=== PATIENT | female | born 1945 | race Caucasian/White ===

== ENCOUNTER 2020-11-30 17:00 | Emergency (ER) | payer OTHER, MEDICAID, SELFPAY ==
--- NOTE | ~2020-11-30 | CT_ITS ---
EXAMINATION: CT brain wo con EXAM DATE: 11/30/2020 21:28 INDICATION: Confusion, unsteady gait. TECHNIQUE: Spiral CT of the head was performed without contrast. Axial, coronal and sagittal images were reviewed. The dose-length product (DLP) for this examination was 1059.33 mGy-cm. The exposure was tailored according to patient size, and iterative reconstruction (ASIR) was used as additional do se reduction technique. There is no prior study for comparison. FINDINGS: There is a 1.5 x 2.5 cm extra-axial lesion with heterogeneous density overlying the left fr ontal lobe, appearance most consistent with meningioma. There is no acute intraparenchymal hemorrhage . No evidence of intraparenchymal brain mass lesion. No evidence of acute infarction. Please note that initial head CT has limited sensitivity for small or acute infarctions. There is periventricular and subcortical hypodensity, nonspecific but probably related to small vessel ischemic disease. Th ere is moderate prominence of the sulci and ventricles related to cerebral atrophy. There is intrac ranial carotid arteriosclerosis. There are no extra-axial collections. There is no mass effect or m idline shift. The orbits are unremarkable. Soft tissue is unremarkable. The visualized sinuses and mastoid air cells are well aerated. IMPRESSION: 1. No acute intracranial findings. 2. Extra-axial lesion overlying left frontal lobe most likely meningioma; recommend nonemergent brai n MR without and with contrast if there is no contraindication. Reviewed, dictated and finalized at location A. IMPRESSION: 1. No acute intracranial findings. 2. Extra-axial lesion overlying left frontal lobe most likely meningioma; jazmine mmend nonemergent brain MR without and with contrast if there is no contraindic ation.
[2020-11-30 17:29] VITALS: BP 129/70; PULSE 85; RESP 16; TEMP 36.9; O2SAT 99
[2020-11-30 17:49] LABS: Basophils Absolute Auto 0.1 K/mm3 (0.0-0.1); Basophils Percent Auto 0.7 % (0.2-1.2); Eosinophils Absolute Auto 0.2 K/mm3 (0-0.3); Eosinophils Percent Auto 2.5 % (0-4.4); Hematocrit 37.2 % (37.0-47.0); Hemoglobin 11.8 g/dL (12.0-15.0); Immature Granulocyte Absolute 0.15 K/mm3 (0.00-0.031); Immature Granulocyte Percent A 1.8 % (0-0.5); Lymphocytes Percent Auto 27.2 % (18.3-44.2); Mean Corpuscular HGB Conc 31.7 g/dl (32-36); Mean Corpuscular Hemoglobin 30.6 pg (26-34); Mean Corpuscular Volume 96.4 fl (80-100); Mean Platelet Volume 9.7 fl (7.4-10.4); Monocytes Absolute Auto 0.8 K/mm3 (0.1-0.6); Monocytes Percent Auto 9.2 % (2.6-8.5); Neutrophils Percent Auto 58.6 % (45.5-73.1); Platelet Count Result 218 k/mm3 (150-375); Red Blood Count 3.86 M/mm3 (4.2-5.4); Red Cell Distribution Width 14.5 % (11.5-14.5); White Blood Count 8.5 K/mm3 (4.5-10.0)
[2020-11-30 17:59] LABS: Alanine Aminotransferase 16 U/L (4-35); Albumin Level 3.9 g/dL (3.5-5.1); Alkaline Phosphatase 66 U/L (38-126); Anion Gap 8 mmol/L (8-16); Aspartate Amino Transferase 17 U/L (14-36); Bilirubin,Total 0.2 mg/dL (0.2-1.3); Blood Urea Nitrogen 14 mg/dL (7-17); Calcium 9.7 mg/dL (8.4-10.2); Carbon Dioxide 25 mmol/L (22-30); Chloride 106 mmol/L (98-107); Estimated CRCL calculation 61 ml/min; Estimated Glomerular Filt Rate > 60; Glucose 168 mg/dL (65-105); Potassium 3.7 mmol/L (3.4-5.0); Sodium 139 mmol/L (137-145)
[2020-11-30 18:30] VITALS: BP 143/63; PULSE 71; RESP 18; O2SAT 99
[2020-11-30 18:48] LABS: Add Urine Microscopic? YES; Appearance Urine Cloudy (Clear); Bacteria Urine Trace /hpf; Bilirubin Urine Negative (Negative); Color Urine Yellow (Yellow); Glucose Urine UA 3+ mg/dL (Negative); Ketones Urine Negative (Negative); Leukocyte Esterase Ur 3+ LEU/UL (Negative); Mucus Urine Few /lpf; Nitrate Urine Negative (Negative); Protein Urine 1+ mg/dL (Negative); Specific Grav Ur 1.022 (1.001-1.035); Squamous Epithelial Cell Urine Few /hpf (Few); WBC Urine >75 /hpf
[2020-11-30 18:55] LABS: Blood Urine Negative (Negative)
--- NOTE | 2020-11-30 19:07 | PC.NURSE ---
placed patient on bed alarm
[2020-11-30 19:28] VITALS: BP 141/65; PULSE 71; O2SAT 99
--- NOTE | 2020-11-30 21:13 | ED.GENADULT ---
HPI - General Adult General Chief complaint: Weakness Stated complaint: REPORTED UNSTEADY GAIT Time Seen by Provider: 11/30/20 20:59 Source: family (son) and RN notes reviewed Mode of arrival: EMS Limitations: dementia History of Present Illness HPI narrative: This is a 75 year old female with history of dementia who presents from [facility] for evaluation of possible dizziness. Patient has no concerns. Patient's son states he was called by her facility today because she seemed to be unsteady when she walks. He states they reported she was leaning when she was walking. She has not fallen due to this but he reports she hit her head 1 week ago. He also states his sister noticed that patient seemed off on Monday. Patient is oriented to self which is her normal. She states she is hungry. She denies headache, dizziness, nausea, vomiting, chest pain or abdominal pain. Related Data Home Medications Medication Instructions Recorded Confirmed acetaminophen 325 mg PO ONCE PRN 11/30/20 alendronate mg PO 11/30/20 aspirin 325 mg PO DAILY 11/30/20 atorvastatin 11/30/20 citalopram mg 11/30/20 donepezil mg 11/30/20 fexofenadine 180 mg PO DAILY 11/30/20 fluticasone propionate [Allergy 2 spray INTRANASAL DAILY 11/30/20 Relief (fluticasone)] glimepiride mg 11/30/20 glucagon [GlucaGen HypoKit] 11/30/20 iron ps [id number] acid cap PO 11/30/20 [Poly-Iron 150 Forte] megestrol 625 mg PO DAILY 11/30/20 melatonin 3 mg PO HS PRN 11/30/20 memantine 10 mg PO BID 11/30/20 metformin 1,000 mg PO BID 11/30/20 montelukast mg 11/30/20 ramipril mg 11/30/20 11/30/20 sitagliptin [Januvia] mg 11/30/20 Allergies Allergy/AdvReac Type Severity Reaction Status Date / Time cat dander Allergy Unknown Verified 11/30/20 18:51 Review of Systems Review of Systems: ROS unobtainable: Yes unobtainable due to mental status PMFSH Past Medical History Medical History (Updated 12/01/20 @ 00:00 by Background Daemon) Dementia Peripheral neuropathy UTI (urinary tract infection) Social History Social History (Updated 11/30/20 @ 21:17 by Lisa Acuna MD) Smoking status: Never smoker Exam Const: General: no acute distress and alert Other: oriented to persn HENMT: Head: normocephalic and other (fading bruise to left forehead) Face and sinus: normal facial exam and face symmetric Eyes: Pupils: Equal, round and reactive pupils present EOM: EOMs intact bilaterally Resp: Effort & Inspection: normal respiratory effort and no retractions Auscultation: clear to auscultation bilaterally Cardio: Rate: regular rate Rhythm: regular rhythm Heart sounds: no murmurs GI: GI Palp: Yes Soft to palpation, No Tenderness to palpation present (GI) and No Guarding due to palpation present (GI) Auscultation: normal bowel sounds Neuro: General: moves all extremities, no focal motor deficits and CN's II-XI intact bilaterally Speech: normal speech Gait exam (Neuro): Normal gait present Psych: Mental Status: mental status grossly normal Affect: normal affect Course Reevaluation(s) Reevaluation #1: I Discussed with son about CT and UA. He is aware of meningioma. She was given dose of antibiotics in ER. He feels comfortable with discharge and taking patient back to facility. Date: 11/30/20 Time: 21:59 Vital Signs Vital signs: Vital Signs Temperature 98.4 F 11/30/20 17:29 Pulse Rate 85 11/30/20 17:29 Respiratory Rate 16 11/30/20 17:29 Blood Pressure 129/70 11/30/20 17:29 Pulse Oximetry 99 11/30/20 17:29 Temperature 98.4 F 11/30/20 17:29 Pulse Rate 72 11/30/20 21:46 Respiratory Rate 18 11/30/20 18:30 Blood Pressure 148/57 H 11/30/20 21:46 Pulse Oximetry 100 11/30/20 21:46 Medical Decision Making Vital Signs Vital Signs: Vital Signs Temperature 98.4 F 11/30/20 17:29 Pulse Rate 85 11/30/20 17:29 Respiratory Rate 16 11/30/20 17:29 Blood Pressure 129/7
[2020-11-30 21:46] VITALS: BP 148/57; PULSE 72; O2SAT 100
== END 2020-11-30 22:18 ==
PROVIDERS: Emergency Medicine; Emergency Provider General Practice
DX: N39.0 Urinary tract infection, site not specified (principal); F03.90 Unspecified dementia, unspecified severity, without behavioral disturbance, psychotic disturbance, mood disturbance, and anxiety; Z79.82 Long term (current) use of aspirin
CPT/HCPCS: 36415; 70450; 80053; 81001; 85025; 87077; 87086; 87088; 87186; 96365; 99284; J0696

== ENCOUNTER 2021-03-07 11:43 | Emergency (ER) | payer OTHER, MEDICAID, SELFPAY ==
--- NOTE | ~2021-03-07 | XR_ITS ---
EXAMINATION: XR chest 1V portable 03/07/2021 12:45 INDICATION: Status post recent fall. Confusion. PROCEDURE: AP portable chest COMPARISON: No prior studies for comparison. FINDINGS: The lungs are clear. The cardiomediastinal silhouette is within normal limits. There are no pleural effusions. There is no pneumothorax suspected. IMPRESSION: 1: NO ACUTE CARDIOPULMONARY DISEASE. Reviewed, dictated and finalized at location A.
--- NOTE | ~2021-03-07 | CT_ITS ---
EXAMINATION: CT brain wo con DATE: 03/07/2021 13:01 INDICATION: Right hematoma after fall TECHNIQUE: Computed tomography (CT) of the head was performed without intravenous contrast. The dose- length product was 529.67 mGy-cm. Automated exposure control and iterative reconstruction technique w ere employed. COMPARISON: CT dated 11/30/2020 FINDINGS: There is a small right frontal scalp hematoma. Generalized atrophy. There are scattered mil d periventricular and subcortical white matter changes, most likely related to small vessel ischemic disease (microangiopathy). Stable left frontal extra-axial slightly hyperdense mass measuring 2.5 x 1 .5 cm, likely meningioma. No ventriculomegaly or midline shift. No significant mass effect. No acute intracranial hemorrhage, infarction, mass or mass effect. Paranasal sinuses and mastoids are pneumati zed. No depressed skull fractures. IMPRESSION: 1. No acute intracranial abnormality. 2: Stable extra-axial mass left frontal lobe measuring 2.5 x 1.5 cm, likely meningioma. Recommend cor relation with contrast-enhanced MRI. Reviewed, dictated and finalized at location A. IMPRESSION: 1. No acute intracranial abnormality. 2: Stable extra-axial mass left frontal lobe measuring 2.5 x 1.5 cm, likely men ingioma. Recommend correlation with contrast-enhanced MRI.
--- NOTE | ~2021-03-07 | CT_ITS ---
EXAMINATION: CT cervical spine wo con DATE: 03/07/2021 13:01 INDICATION: Status post fall. Neck pain. TECHNIQUE: Computed tomography (CT) of the cervical spine was performed without intravenous contrast. The dose-length product was 138 mGy-cm. Automated exposure control and iterative reconstruction tech nique were employed. COMPARISON: None FINDINGS: Severe multilevel cervical spondylosis with straightening of cervical lordosis. [place] is of the cervical spine. Odontoid process within normal limits. Lung apices are normal. No significa nt paraspinal soft tissue abnormality. No acute fracture or traumatic malalignment. No evidence for p erched facet. IMPRESSION: 1. No acute abnormality of the cervical spine. 2: Severe cervical spondylosis. Reviewed, dictated and finalized at location A.
[2021-03-07 11:43] VITALS: PULSE 94; RESP 18; O2SAT 100
[2021-03-07 11:49] VITALS: BP 147/78; TEMP 37
--- NOTE | 2021-03-07 12:56 | ED.FALL ---
HPI - Fall General Chief Complaint: Fall Stated Complaint: FALLS Time Seen by Provider: 03/07/21 12:21 Source: patient, EMS and RN notes reviewed Mode of arrival: EMS Limitations: dementia History of Present Illness HPI Narrative: 75 years old, Alzheimer patient came from [facility] because of multiple falls today with multiple contusions. No family member at the bedside, patient is awake, disoriented x3, speaks to herself Related Data Home Medications Medication Instructions Recorded Confirmed acetaminophen 325 mg PO ONCE PRN 11/30/20 alendronate mg PO 11/30/20 aspirin 325 mg PO DAILY 11/30/20 atorvastatin 11/30/20 citalopram mg 11/30/20 donepezil mg 11/30/20 fexofenadine 180 mg PO DAILY 11/30/20 fluticasone propionate [Allergy 2 spray INTRANASAL DAILY 11/30/20 Relief (fluticasone)] glimepiride mg 11/30/20 glucagon [GlucaGen HypoKit] 11/30/20 iron ps [id number] acid cap PO 11/30/20 [Poly-Iron 150 Forte] megestrol 625 mg PO DAILY 11/30/20 melatonin 3 mg PO HS PRN 11/30/20 memantine 10 mg PO BID 11/30/20 metformin 1,000 mg PO BID 11/30/20 montelukast mg 11/30/20 ramipril mg 11/30/20 11/30/20 sitagliptin [Januvia] mg 11/30/20 Allergies Allergy/AdvReac Type Severity Reaction Status Date / Time cat dander Allergy Unknown Verified 11/30/20 18:51 Review of Systems Review of Systems: ROS unobtainable: Yes unobtainable due to mental status PMFSH Past Medical History Medical History Dementia Peripheral neuropathy UTI (urinary tract infection) Social History Social History Smoking status: Never smoker Exam Narrative: General appearance: Well-developed, well-nourished Skin: Right forehead contusion Head: Right forehead contusion Eyes: Clear conjunctiva ENT: Oropharynx normal, ears normal, nose normal Neck: Supple, nontender Chest and respiratory: Airway patent, no respiratory distress, no accessory muscle use Heart: Regular rate/rhythm Abdomen: Soft, nontender, no organomegaly, quiet bowel sounds Vascular: Normal peripheral pulses, normal capillary refill. Musculoskeletal: Normal range of motion, nontender back Neurologic: Alert disoriented x4, restless, speaks nonsense Course Course Emergency Course: Stable Vital Signs Vital signs: Vital Signs Pulse Rate 94 03/07/21 11:43 Respiratory Rate 18 03/07/21 11:43 Pulse Oximetry 100 03/07/21 11:43 Temperature 37.0 C 03/07/21 11:49 Pulse Rate 94 03/07/21 11:43 Respiratory Rate 18 03/07/21 11:43 Blood Pressure 147/78 H 03/07/21 11:49 Pulse Oximetry 100 03/07/21 11:43 MDM - Fall MDM Narrative Medical decision making narrative: Alzheimer's patient with multiple falls. Labs, CT head and neck, UA, chest x-ray ordered. Differential Diagnosis Differential diagnosis: Likely concussion without loss of consciousness Lab Data Result diagrams: 03/07/21 13:08 03/07/21 13:08 Labs: Lab Results 03/07/21 03/07/21 03/07/21 Range/Units 13:08 13:08 13:54 WBC 9.4 (4.5-10.0) K/mm3 RBC 3.71 L (4.2-5.4) M/mm3 Hgb 12.0 (12.0-15.0) g/dL Hct 36.7 L (37.0-47.0) % MCV 98.9 (80-100) fl MCH 32.3 (26-34) pg MCHC 32.7 (32-36) g/dl RDW 13.0 (11.5-14.5) % Plt Count 273 (150-375) k/mm3 MPV 9.5 (7.4-10.4) fl Immature Gran % (Auto) 1.0 H (0-0.5) % Neut % (Auto) 69.9 (45.5-73.1) % Lymph % (Auto) 18.2 L (18.3-44.2) % [place] % (Auto) 8.6 H (2.6-8.5) % Eos % (Auto) 1.8 (0-4.4) % Baso % (Auto) 0.5 (0.2-1.2) % Lymph # (Auto) 1.71 (0.9-3.2) K/mm3 [place] # (Auto) 0.8 H (0.1-0.6) K/mm3 Eos # (Auto) 0.2 (0-0.3) K/mm3 Baso # (Auto) 0.
[2021-03-07 13:21] LABS: Basophils Absolute Auto 0.1 K/mm3 (0.0-0.1); Basophils Percent Auto 0.5 % (0.2-1.2); Eosinophils Absolute Auto 0.2 K/mm3 (0-0.3); Eosinophils Percent Auto 1.8 % (0-4.4); Hematocrit 36.7 % (37.0-47.0); Immature Granulocyte Absolute 0.09 K/mm3 (0.00-0.031); Lymphocytes Absolute Auto 1.71 K/mm3 (0.9-3.2); Lymphocytes Percent Auto 18.2 % (18.3-44.2); Mean Corpuscular HGB Conc 32.7 g/dl (32-36); Mean Corpuscular Hemoglobin 32.3 pg (26-34); Mean Corpuscular Volume 98.9 fl (80-100); Mean Platelet Volume 9.5 fl (7.4-10.4); Monocytes Absolute Auto 0.8 K/mm3 (0.1-0.6); Monocytes Percent Auto 8.6 % (2.6-8.5); Neutrophils Absolute Auto 6.6 K/mm3 (1.3-6.7); Neutrophils Percent Auto 69.9 % (45.5-73.1); Platelet Count Result 273 k/mm3 (150-375); Red Blood Count 3.71 M/mm3 (4.2-5.4); White Blood Count 9.4 K/mm3 (4.5-10.0)
[2021-03-07 13:31] LABS: Alanine Aminotransferase 17 U/L (4-35); Albumin Level 4.4 g/dL (3.5-5.1); Alkaline Phosphatase 101 U/L (38-126); Anion Gap 10 mmol/L (8-16); Aspartate Amino Transferase 18 U/L (14-36); Bilirubin,Total 0.6 mg/dL (0.2-1.3); Blood Urea Nitrogen 14 mg/dL (7-17); Calcium 9.3 mg/dL (8.4-10.2); Carbon Dioxide 24 mmol/L (22-30); Chloride 105 mmol/L (98-107); Estimated CRCL calculation 47 ml/min; Estimated Glomerular Filt Rate > 60; Glucose 173 mg/dL (65-110); Potassium 3.7 mmol/L (3.4-5.0); Sodium 139 mmol/L (137-145)
[2021-03-07 14:10] LABS: Add Urine Microscopic? YES; Appearance Urine Cloudy (Clear); Bacteria Urine Trace /hpf; Bilirubin Urine Negative (Negative); Color Urine Yellow (Yellow); Glucose Urine UA 3+ mg/dL (Negative); Ketones Urine Trace mg/dL (Negative); Leukocyte Esterase Ur 3+ LEU/UL (Negative); Mucus Urine Rare /lpf; Nitrate Urine Negative (Negative); Protein Urine 1+ mg/dL (Negative); Specific Grav Ur 1.022 (1.001-1.035); Squamous Epithelial Cell Urine Rare /hpf (Few); WBC Urine >75 /hpf
[2021-03-07 14:12] LABS: Blood Urine Negative (Negative)
== END 2021-03-07 17:03 | disposition home or self-care (01) ==
PROVIDERS: Emergency Provider Emergency Medicine; PCP Family Medicine
DX: S00.83XA Contusion of other part of head, initial encounter (principal); N39.0 Urinary tract infection, site not specified; G30.9 Alzheimer's disease, unspecified; F02.80 Dementia in other diseases classified elsewhere, unspecified severity, without behavioral disturbance, psychotic disturbance, mood disturbance, and anxiety; W19.XXXA Unspecified fall, initial encounter
CPT/HCPCS: 36415; 51701; 70450; 71045; 72125; 80053; 81001; 85025; 87077; 87086; 87088; 87186; 96365; 99284; J0696

== ENCOUNTER 2021-04-12 18:23 | Emergency (ER) | payer OTHER, BC, SELFPAY ==
--- NOTE | ~2021-04-12 | CT_ITS ---
EXAMINATION: CT brain wo con DATE: 04/12/2021 19:19 INDICATION: Status post fall. Headache. TECHNIQUE: Computed tomography (CT) of the head was performed without intravenous contrast. The dose- length product was 605.33 mGy-cm. Automated exposure control and iterative reconstruction technique were employed. COMPARISON: CT dated 03/07/2021 FINDINGS: Study limited by motion artifact. Generalized atrophy. There are scattered mild periventric ular and subcortical white matter changes, most likely related to small vessel ischemic disease (micr oangiopathy). No acute intracranial hemorrhage, infarction, mass or mass effect. No ventriculomegaly or midline shift. Basilar cisterns are patent. IMPRESSION: 1. No acute intracranial abnormality. 2: Chronic age-related findings. Reviewed, dictated and finalized at location A. [employer]
[2021-04-12 18:35] VITALS: BP 127/68; PULSE 76; RESP 18; TEMP 37.2; O2SAT 99
--- NOTE | 2021-04-12 18:35 | ED.FALL ---
HPI - Fall General Chief Complaint: Fall Stated Complaint: FALL Time Seen by Provider: 04/12/21 18:34 Source: patient and EMS Mode of arrival: EMS Limitations: dementia History of Present Illness HPI Narrative: 75-year-old female history of Alzheimer's. By EMS for reports of fall. Per custodial patient fell onto her right side with right forehead contusion. No no LOC patient with Alzheimer's currently has no complaints. She is oriented to 0. Moving all extremities not ill-appearing with a 1 cm contusion to the right forehead. Related Data Home Medications Medication Instructions Recorded Confirmed acetaminophen 325 mg PO ONCE PRN 11/30/20 alendronate mg PO 11/30/20 aspirin 325 mg PO DAILY 11/30/20 atorvastatin 11/30/20 citalopram mg 11/30/20 donepezil mg 11/30/20 fexofenadine 180 mg PO DAILY 11/30/20 fluticasone propionate [Allergy 2 spray INTRANASAL DAILY 11/30/20 Relief (fluticasone)] glimepiride mg 11/30/20 glucagon [GlucaGen HypoKit] 11/30/20 iron ps [id number] acid cap PO 11/30/20 [Poly-Iron 150 Forte] megestrol 625 mg PO DAILY 11/30/20 melatonin 3 mg PO HS PRN 11/30/20 memantine 10 mg PO BID 11/30/20 metformin 1,000 mg PO BID 11/30/20 montelukast mg 11/30/20 ramipril mg 11/30/20 11/30/20 sitagliptin [Januvia] mg 11/30/20 [id number] 1 tablet PO BID 04/12/21 [Caltrate 600-D Plus Minerals] haloperidol 0.5 mg PO BID 04/12/21 Allergies Allergy/AdvReac Type Severity Reaction Status Date / Time cat dander Allergy Unknown Verified 04/12/21 18:39 Review of Systems Review of Systems: ROS unobtainable: Yes [facility]) [facility] Past Medical History Medical History Dementia Peripheral neuropathy UTI (urinary tract infection) Social History Social History Smoking status: Never smoker Exam Narrative: General: alert, afebrile, unable to answer questions Head: normocephalic, R 1 cm contuison R temporal area Eyes: EOMI bilaterally, anicteric, no injection ENT: moist mucous membranes, oropharynx patent, no rhinorrhea Neck: supple, trachea midline, no JVD Chest: equal chest rise bilaterally, no chest wall trauma noted Back: no lumbar bony tenderness. paraspinal muscles without spasm EXT: no deformity noted, moving all extremities equally Skin: warm, dry, no pallor Neuro: alert, ; CN 2-12 grossly intact, no dysarthria Psych: affect appropriate, though content normal Course Vital Signs Vital signs: Vital Signs Temperature 37.2 C 04/12/21 18:35 Pulse Rate 76 04/12/21 18:35 Respiratory Rate 18 04/12/21 18:35 Blood Pressure 127/68 04/12/21 18:35 Pulse Oximetry 99 04/12/21 18:35 Temperature 37.2 C 04/12/21 18:35 Pulse Rate 86 04/12/21 22:29 Respiratory Rate 18 04/12/21 22:29 Blood Pressure 125/65 04/12/21 22:29 Pulse Oximetry 98 04/12/21 22:29 MDM - Fall MDM Narrative Medical decision making narrative: Plan with right forehead contusion alert moving all extremities history of Alzheimer's unable to answer any questions. Speaking full sentences but not making any sense. Alert comfortable no apparent distress. Plan is to get CT brain without. Patient does not have any evidence of extremity deformity no chest wall pain, no abdominal pain no bruising to the trunk area. Differential Diagnosis Differential diagnosis: Likely syncope, concussion with loss of consciousness, concussion without loss of consciousness and other (Subdural hematoma, epidural hematoma, ICH, brain contusion.) Discharge Plan Discharge Clinical Impression: Fall Qualifiers: Encounter type: initial encounter Qualified Code(s): W19.XXXA - Unspecified fall, initial encounter Contusion of face Qualifiers: Encounter type: initial encounter Qualified Code(s): S00.83XA - Contusion of other part of head, initial encounter Patie
[2021-04-12 19:00] VITALS: BP 143/86; PULSE 88; RESP 18; O2SAT 100
--- NOTE | 2021-04-12 19:00 | PC.NURSE ---
Assuming care of pt.
--- NOTE | 2021-04-12 21:31 | PC.NURSE ---
Transport set up for pt to go back to [facility]. Report called to Maisha at [facility].
[2021-04-12 22:29] VITALS: BP 125/65; PULSE 86; RESP 18; O2SAT 98
== END 2021-04-12 22:32 ==
PROVIDERS: Emergency Provider Emergency Medicine; PCP Family Medicine
DX: S00.83XA Contusion of other part of head, initial encounter (principal); G30.9 Alzheimer's disease, unspecified; F02.80 Dementia in other diseases classified elsewhere, unspecified severity, without behavioral disturbance, psychotic disturbance, mood disturbance, and anxiety; E11.42 Type 2 diabetes mellitus with diabetic polyneuropathy; I10 Essential (primary) hypertension; E78.00 Pure hypercholesterolemia, unspecified; Z87.440 Personal history of urinary (tract) infections; Z79.82 Long term (current) use of aspirin; Z79.84 Long term (current) use of oral hypoglycemic drugs; W19.XXXA Unspecified fall, initial encounter
CPT/HCPCS: 70450; 99284